=== PATIENT | male | born 1965 | race African-American/Black ===

== ENCOUNTER 2025-05-02 17:20 | Emergency (ER) | payer MEDICAID ==
[~2025-05-02] VITALS: Ht 162.6 cm; Wt 73.0 kg
[~2025-05-02 17:20] MED LIST: AMLO10TA80 PO; ASPI-1160 PO; ATOR10TA PO; LOSA-413 PO; RISP1 PO; THIA100T72 PO
[2025-05-02 17:23] VITALS: BP 198/104; PULSE 74; RESP 16; TEMP 36.9; O2SAT 98
[2025-05-02 19:52] LABS: BASOPHILS % 0.4 % (0.0-2.0); EOSINOPHILS % 0.2 % (0.0-5.0); HEMATOCRIT. 51.6 % (42.0-52.0); HEMOGLOBIN. 17.2 g/dL (14.0-18.0); LYMPHOCYTES % 11.0 % (20.0-50.0); MEAN PLATELET VOLUME 8.2 fl (7.4-10.4); MONOCYTES % 3.8 % (2.0-8.0); NEUTROPHILS % 84.6 % (40.0-76.0); PLATELET 273 x1000/uL (130-400); RED BLOOD CELL COUNT 5.65 mill/uL (4.7-6.1); RED CELL DISTRIBUTION WIDTH 13.9 % (11.6-14.6)
[2025-05-02 20:04] LABS: CREATININE 1.1 mg/dL (0.6-1.3); UREA NITROGEN BLOOD 6 mg/dL (9-23)
[2025-05-02 20:06] LABS: ASPARTATE AMINOTRANSFERASE 22 IU/L (<34); BILIRUBIN DIRECT 0.2 mg/dL (<=3.0); BILIRUBIN TOTAL 0.7 mg/dL (0.1-1.0)
[2025-05-02 20:07] LABS: PROTEIN TOTAL 7.5 g/dL (6.0-8.3)
== END 2025-05-02 22:22 | disposition left against medical advice (07) ==
LOC: ER 17:20 → EDBEDREQ 21:18 → EDBEDREQTM 21:18 → ER 22:22 → CMPBEDREQ 05-03 07:47
DX: M77.31 Calcaneal spur, right foot (principal); I10 Essential (primary) hypertension; Z79.899 Other long term (current) drug therapy
CPT/HCPCS: 36415; 73630; 80048; 80076; 80320; 83735; 85025; 99284; G0480